=== PATIENT | female | born 1995 | race Caucasian/White ===

== ENCOUNTER 2021-10-14 15:44 | Inpatient (IN) | payer BC ==
[~2021-10-14] VITALS: Ht 165.1 cm; Wt 65.8 kg
[~2021-10-14 15:44] MED LIST: COLACE 100MG C100 MG PO; IBUPROFEN600 MG PO; LORTAB 5-325 M1 EACH PO; PRENATABS FA T1 EACH PO
[2021-10-14 16:16] LABS: HEMOGLOBIN 12.1 gm/dl (12.3-15.3); RED BLOOD COUNT 3.91 M/UL (4.00-5.10); WHITE BLOOD COUNT 8.3 K/UL (4.5-11.0)
[2021-10-14 16:33] LABS: BUN/CREATININE RATIO 5 (0-10)
[2021-10-16 06:53] LABS: HEMOGLOBIN 11.3 gm/dl (12.3-15.3)
[2021-10-16] MEDS ORDERED: IBUPROFEN600 MG PO (13:34)
[2021-10-16] MEDS ORDERED: DOCUSATE SODIU100 MG PO (13:34)
[2021-10-16] MEDS ORDERED: LABETALOL HCL100 MG PO (13:34)
== END 2021-10-16 15:28 | disposition home or self-care (01) | DRG 807 ==
LOC: GENOP 15:44 → OB 15:54
PROVIDERS: ADMIT Obstetrics & Gynecology
PROC: 10E0XZZ Delivery of Products of Conception, External Approach (ICD-10-PCS; principal; 2021-10-15)
PROC: 10907ZC Drainage of Amniotic Fluid, Therapeutic from Products of Conception, Via Natural or Artificial Opening (ICD-10-PCS; 2021-10-15)
PROC: 4A1HXCZ Monitoring of Products of Conception, Cardiac Rate, External Approach (ICD-10-PCS; 2021-10-15)
PROC: 3E033VJ Introduction of Other Hormone into Peripheral Vein, Percutaneous Approach (ICD-10-PCS; 2021-10-15)
PROC: 0HQ9XZZ Repair Perineum Skin, External Approach (ICD-10-PCS; 2021-10-15)
PROC: 3E0234Z Introduction of Serum, Toxoid and Vaccine into Muscle, Percutaneous Approach (ICD-10-PCS; 2021-10-15)
DX: O14.94 Unspecified pre-eclampsia, complicating childbirth (principal); Z37.0 Single live birth; Z3A.37 37 weeks gestation of pregnancy; Z20.822 Contact with and (suspected) exposure to COVID-19; O70.0 First degree perineal laceration during delivery; Z23 Encounter for immunization
CPT/HCPCS: 36415; 80053; 81001; 82570; 82800; 83615; 84156; 84550; 85014; 85018; 85025; 90715; G0378; J2590; J7120